=== PATIENT | female | born 1990 | race Caucasian/White ===

== ENCOUNTER 2018-03-11 17:07 | Inpatient (IN) | payer OTHER ==
[2018-03-11] MEDS: Lactated Ringers 1,000 ML IV SCH ×2 (18:20→19:20)
[2018-03-11] MEDS ORDERED: Lactated Ringers 500 ML IV ONE (18:33)
[2018-03-11] MEDS ORDERED: Lidocaine 1% 30 ML SDV INJECT PRN (18:33)
[2018-03-11] MEDS ORDERED: Tranexamic Acid 1,000 MG in Sodium Chloride 0.9% 100 ML IV PRN (18:33)
[2018-03-11] MEDS ORDERED: Methylergonovine 0.2 MG/1 ML Amp IM PRN (18:33)
[2018-03-11] MEDS ORDERED: Acetaminophen 325 MG Tab PO PRN (18:33)
[2018-03-11] MEDS ORDERED: Misoprostol 400 MCG (4 X 100 MCG TAB) RECTAL PRN (18:33)
[2018-03-11] MEDS ORDERED: Carboprost Tromethamine 250 MCG/1 ML Amp IM PRN (18:33)
[2018-03-11] MEDS ORDERED: Ondansetron 4 MG/2 ML SDV IV PRN (18:33)
[2018-03-11] MEDS ORDERED: Sodium Chloride 0.9% 10 ML Syringe FLUSH PRN (18:33)
--- NOTE | 2018-03-11 18:47 | PCM.LDHP ---
<Jeny José - Last Filed: 03/11/18 18:41> L&D History of Present Illness - General Date of Service: 03/11/18 Admit Problem/Dx: Patient Status Order with Admit Dx/Problem 03/11/18 18:34 Patient Status [ADT] Routine Admission Diagnosis/Problem Admission Diagnosis/Problem Normal labor 03/11/18 18:42 Source of Information: Patient History Limitations: Reports: No Limitations - History of Present Illness Introduction:: Patient is a at 37w3d here with rupture of membranes of clear/pink fluid. This occurred at 4:45 pm and she started having strong contractions after that occurring every 3-4 minutes. They are strong. Baby is moving well. No complications of . No other PMH. No vaginal bleeding. No fevers, chills, chest pain, shortness of breath, headaches, vision changes, leg swelling. - Related Data Allergies/Adverse Reactions: Allergies Allergy/AdvReac Type Severity Reaction Status Date / Time sulfamethoxazole Allergy Cannot Verified 03/11/18 18:47 [From Bactrim] Remember trimethoprim [From Bactrim] Allergy Cannot Verified 03/11/18 18:47 Remember Past Medical History PATIENT SCHEDULING COORDINATOR History: Reports: : 1 Para: 0 LMP (Approximate): > 3 Months (37w3d ) Social & Family History - Tobacco Use Smoking Status *Q: Never Smoker - Sexual History Sexual History: Reports: Sexually Active, Single Partner H&P Review of Systems - Review of Systems: Review Of Systems: See Below General: Reports: No Symptoms HEENT: Reports: No Symptoms Pulmonary: Reports: No Symptoms Cardiovascular: Reports: No Symptoms Gastrointestinal: Reports: No Symptoms Genitourinary: Reports: No Symptoms Musculoskeletal: Reports: No Symptoms Skin: Reports: No Symptoms Psychiatric: Reports: No Symptoms Neurological: Reports: No Symptoms Hematologic/Lymphatic: Reports: No Symptoms Immunologic: Reports: No Symptoms L&D Exam - Exam Exam: See Below - Vital Signs Vital Signs: Last BP normal - OB Specific Contraction Intensity: Moderate Movement: Active Heart Tones: Present Heart Tones per Min: 145 (accelerations present, variables present) Heart Rate (FHR) Variability: Moderate (6-25 bmp) - Exam General: Alert, Oriented, Cooperative HEENT: Conjunctiva Clear, EACs Clear, EOMI, Hearing Intact, Mucosa Moist & [place] , Nares Patent, Normal Nasal Septum Neck: Supple, Trachea Midline Lungs: Clear to Auscultation, Normal Respiratory Effort Cardiovascular: Regular Rate, Regular Rhythm, Normal S1, Normal S2 GI/Abdominal Exam: Normal Bowel Sounds, Soft, Non-Tender, Other () Genitourinary: Cervical dilitation (/-1) Back Exam: Normal Inspection Extremities: Normal Inspection, Normal Range of Motion, Non-Tender, No Pedal Edema Skin: Warm, Dry, Intact Neurological: Cranial Nerves Intact, Reflexes Equal Bilateral Psychiatric: Alert, Normal Affect, Normal Mood - Patient Data Lab Results Last 24 hrs: O negative Antibody Negative Rubella immune Hepatitis negative HIV negative gonorrhea/chlamydia negative Negative DM screen GBS negative Problem List Initiated/Reviewed/Updated: Yes Orders Last 24hrs: Active Orders 24 hr Category Date Time Status Patient Status [ADT] Routine ADT 03/11/18 18:34 Ordered Communication Order [RC] ASDIRECTED Care 03/11/18 18:34 Ordered Heart Tones [RC] PER UNIT ROUTINE Care 03/11/18 18:34 Ordered Notify Provider Vital Signs OB [RC] ASDIRECTED Care 03/11/18 18:34 Ordered Notify Provider [RC] PRN Care 03/11/18 18:34 Ordered Pump Management, Intrathecal [RC] ASDIRECTED Care 03/11/18 18:33 Ordered Up ad Aileen [RC] ASDIRECTED Care 03/11/18 18:34 Ordered Vital Signs [RC] PER UNIT ROUTINE Care 03/11/18 18:34 Ordered CBC W/O DIFF,HEMOGRAM [HEME] Routine Lab 03/11/18 18:34 Ordered Acetaminophen [Tylenol] Med 03/11/18 18:33 Ordered 650 mg PO Q4H PRN Carboprost Tromethamine [Hemabate DS] Med 03/11/18 18:33 Ordered 250 mcg IM ASDIRECTED PRN Lactated Ringers @ 125 MLS/HR(1000ml) Med 03/11/18 18:45 Ordered Lactated Ringers [Ringers, Lactated] 1,000 ml IV ASDIRECTED Lactated Ringers [Ringers, Lactated] 500 ml Med 03/11/18 18:33 Ordered IV .BOLUS Lidocaine 1% [Xylocaine-MPF 1%] Med 03/11/18 18:33 Ordered 10 ml INJECT ASDIRECTED PRN Methylergonovine [Methergine] Med 03/11/18 18:33 Ordered 0.2 mg IM ASDIRECTED PRN Misoprostol [Cytotec] Med 03/11/18 18:33 Ordered 800 mcg RECTAL ASDIRECTED PRN Ondansetron [Zofran] Med 03/11/18 18:33 Ordered 4 mg IV Q4H PRN Sodium Chloride 0.9% [Saline Flush] Med 03/11/18 18:33 Ordered 10 ml FLUSH ASDIRECTED PRN Tranexamic Acid [Cyklokapron] 1,000 mg Med 03/11/18 18:33 Ordered Sodium Chloride 0.9% [Normal Saline] 100 ml IV ONETIME Saline Lock Insert [OM.PC] Routine Oth 03/11/18 18:34 Ordered Resuscitation Status Routine Resus Stat 03/11/18 18:33 Ordered Medication Orders Acetaminophen (Tylenol) 650 mg PO Q4H PRN PRN Reason: Pain (Mild 1-3) and fever Carboprost Tromethamine (Hemabate Ds) 250 mcg IM ASDIRECTED PRN PRN Reason: HEMORRHAGE Lactated Ringer's (Ringers, Lactated) 500 mls @ 500 mls/hr IV .BOLUS ONE Stop: 03/11/18 19:32 Lactated Ringer's (Ringers, Lactated) 1,000 mls @ 125 mls/hr IV ASDIRECTED ROSA ISELA Tranexamic Acid 1,000 mg/ (Sodium Chloride) 110 mls @ 660 mls/hr IV ONETIME PRN PRN Reason: Bleeding Lidocaine HCl (Xylocaine-Mpf 1%) 10 ml INJECT ASDIRECTED PRN PRN Reason: Perineal Repair Methylergonovine Maleate (Methergine) 0.2 mg IM ASDIRECTED PRN PRN Reason: Hemorrhage Misoprostol (Cytotec) 800 mcg RECTAL ASDIRECTED PRN PRN Reason: Hemorrhage Ondansetron HCl (Zofran) 4 mg IV Q4H PRN PRN Reason: Nausea/Vomiting Sodium Chloride (Saline Flush) 10 ml FLUSH ASDIRECTED PRN PRN Reason: Keep Vein Open Assessment/Plan Comment:: Normal Labor after SROM at term (37w5d), no complications Admit to L&D Continuous TOCO and EFM Intrathecal when needed Routine intrapartum labs and orders GBS negative rH negative; will check if she need rhogam post Expectant management for Jeny José MD PGYIII <Caridad Monteselajose Anderson - Last Filed: 03/17/18 13:44> L&D History of Present Illness - General Admit Problem/Dx: Patient Status Order with Admit Dx/Problem 03/11/18 18:34 Patient Status [ADT] Routine Admission Diagnosis/Problem Admission Diagnosis/Problem delivery, delivered, current hospitalization L&D Exam - Vital Signs Vital Signs: Last Vital Signs Temp 97.8 F 03/15/18 09:25 Pulse 66 03/15/18 09:25 Resp 14 03/15/18 09:25 BP 126/64 03/15/18 09:25 Pulse Ox 99 03/15/18 09:25 - Patient Data Result Diagrams: 03/13/18 06:30 Assessment/Plan Comment:: Dr. José's note reviewed. Agree with her assessment and plan as written. -valet runner [id number]
[2018-03-11] MEDS ORDERED: Bupivacaine 0.75%/D5W 2 ML Amp ONE (19:00)
[2018-03-11] MEDS ORDERED: EPINEPHrine 1 MG/ML SDV ONE (19:01)
[2018-03-11] MEDS ORDERED: fentaNYL 100 MCG/2 ML SDV ONE (19:01)
--- NOTE | 2018-03-11 19:28 | PCM.SN ---
- Free Text/Narrative Note: Intrathecal. Sitting position. Sterile prep and drape. 1 % lidocaine w bicarb for skinwheal to L2 L3 interspace. introducer, 24 ga pencan x 1. Pos CSF, neg heme, neg parasthesia. epi 1:1000 pf 0.1 ml, pf ns 0.4 ml, 20 mcg pf sufenta, 30 mcg pf fentanyl, 6 mg of 0.75% pf bupivacaine injected after CSF aspiration. Pt to L lateral position procedure time 1900 to 1934
[2018-03-11] MEDS ORDERED: Citric Acid/Sodium Citrate Solution 30 ML Cup PO ONE (23:26)
[2018-03-11] MEDS ORDERED: Citric Acid/Sodium Citrate Solution 30 ML Cup ONE (23:38)
[2018-03-11] MEDS ORDERED: Oxytocin/Normal Saline 60 UNIT/1,000 ML BAG ONE (23:39)
[2018-03-12] MEDS: Lactated Ringers 1,000 ML IV SCH (02:46)
[2018-03-12] MEDS ORDERED: Naloxone 2 MG/2 ML Syringe IVPUSH PRN (02:47)
[2018-03-12] MEDS ORDERED: Acetaminophen/oxyCODONE 325-5 MG Tab PO PRN (02:47)
[2018-03-12] MEDS ORDERED: ePHEDrine 50 MG/ML SDV IVPUSH PRN (02:47)
[2018-03-12] MEDS ORDERED: Benzocaine/Menthol 20%-0.5% Spray 56 GM Canister TOP PRN (02:47)
[2018-03-12] MEDS ORDERED: diphenhydrAMINE 50 MG/ML SDV IVPUSH PRN (02:47)
[2018-03-12] MEDS ORDERED: Hydrocortisone 2.5% Crm 30 GM Tube TOP PRN (02:47)
[2018-03-12] MEDS ORDERED: Ketorolac 30 MG/ML SDV IVPUSH SCH (03:00)
[2018-03-12] MEDS ORDERED: Lactated Ringers 1,000 ML IV SCH (03:00)
[2018-03-12] MEDS: ceFAZolin 2 GM in Premix Bag 1 BAG IV STA ×3 (04:09)
[2018-03-12] MEDS ORDERED: Oxytocin/Normal Saline 30 UNIT/500 ML BAG IV SCH (04:30)
[2018-03-12] MEDS: Ketorolac 30 MG/ML SDV IVPUSH SCH ×3 (07:30→19:59)
--- NOTE | 2018-03-12 07:42 | OR ---
DATE: 03/12/2018 PROCEDURE PERFORMED: Primary low transverse section with complication of hysterotomy incision actually going through the cervical segment rather than the lower aspect of the myometrium. SURGEON: Rubia Wheeler MD. LEAD PROGRAMMER ANALYST: Jeny José, PGY-III . SECOND BASS SINGER: Estrellita Mills MD. THIRD BASS SINGER: Chele Hurtado MD PRE-PROCEDURE DIAGNOSES: 1. A 37 and 4/7 weeks' intrauterine . 2. 1, para 0. 3. Blood type O negative, rubella immune, and group B streptococcus negative. 4. History of asthma. 5. History of Methicillin-resistant Staphylococcus aureus. 6. History of depression. 7. History of irritable bowel syndrome. 8. Arrest of descent in stage 2 of labor. 9. Failed attempt of vacuum-assisted vaginal delivery due to occiput posterior presentation. POSTPROCEDURE DIAGNOSES: 1. A 37 and 4/7 weeks' intrauterine . 2. 1, para 0. 3. Blood type O negative, rubella immune, and group B streptococcus negative. 4. History of asthma. 5. History of Methicillin-resistant Staphylococcus aureus. 6. History of depression. 7. History of irritable bowel syndrome. 8. Arrest of descent in stage 2 of labor. 9. Failed attempt of vacuum-assisted vaginal delivery due to occiput posterior presentation. 10.Delivery of viable female . 11.Surgery complicated by hysterotomy site actually being through the cervical segment rather than the myometrial aspect of the uterus. CONSENT: Discussed with the patient, her and mother, the indications, risks, and alternatives to primary low transverse section. Discussed with her the increased risk of infection and plan for preoperative antibiotics, risk of bleeding to the point of requiring blood transfusion as well as its inherent risk, risk of complications for her and/or the baby that may require transfer to a higher level of care, specifically injury to large blood vessels, nerves, veins, any adjacent or internal structures, including but not limited to bowel, bladder, fallopian tubes, ovaries, uterus itself, and even potential injury to the baby. She verbalized understanding, her questions were answered, and a signed consent was signed and is on the chart. PROCEDURE IN DETAIL: A Garner catheter was placed in the delivery room, after pushing the baby from back up into the pelvis. The patient was then taken to the operating room, and spinal anesthesia obtained. Thereafter, baby's heart tones were verified to be in the 130s prior to the prep. She was laid in the dorsal supine position with leftward tilt and prepped and draped in the usual fashion. A skin incision was made at 0030 hours and carried down to the underlying fascia using a combination of cautery and finger dissection. The fascia was incised in the midline with cautery and extended bilaterally using cautery and finger traction. Superior fascial edge was grasped with Lorrie's, tented up, and rectus muscles dissected off bluntly and with cautery. Inferior fascial edge grasped, tented up, and rectus muscles also dissected off bluntly and with cautery. Rectus muscles were in the midline with blunt finger dissection and peritoneal cavity entered by blunt finger dissection. The Gurwinder O retractor was then placed and hysterotomy site reviewed. Infant's shoulder was palpated just superior to the bladder reflection, and head was well down within the pelvis. Prior to coming to the operating room, the baby's head had been , so it was known that he was very low in the pelvis. With Dr. Mills underneath the drape and pressing cepahalad on the head, hysterotomy incision was made a few centimeters above what appeared to be the bladder reflection and extended bilaterally using traction. Infant's left shoulder present at the incision site. Infant's head was reached, and we managed to bring it up through the incision site and eventually out and baby delivered, and mouth and nose were bulb suctioned. Baby delivered at 0037. Three-vessel umbilical cord was doubly clamped and cut. Baby taken over to the warmer for further evaluation. Attention then returned to the mother, and cord blood sample obtained and placenta delivered by gentle cord traction and concomitant uterine massage, inspected and intact. Hysterotomy site was discovered to be through the cervical tissue and inferior to myometrial tissue. This tissue was more of a black and smooth mucous membrane tissue consistent with being in the cervical segment. The uterine cavity was cleared of all clots and debris using a dry lap sponge. Mendoza clamps were used around the site to identify the edges. We then had a nurse go underneath the drape for a vaginal exam in order to verify that we were properly identifying the anatomy and planing proper closure. The edges were also marked with mosquito hemostats in order to make sure that the landmarks were well identified. At this time, the Garner catheter was showing some hematuria, so the bladder was insufflated with 120 mL of sterile formula, and there were no signs of any leaks or injury to the bladder. Dr. Hurtado had arrived after this to help us verify appropriate landmarks. After verifying that we all agreed to the appropriate closure of the tissue, a torn fragment of the posterior uterine wall was tacked back into place. The incision site was then closed with a running stitch of 0 Vicryl in a locked fashion, and there were noted to be some bleeders on the maternal right-hand side, which were controlled with [id number] and simple suture. A second imbricating layer was then placed through the cervical segment with 0 Vicryl, and hemostasis at this time confirmed. The area was then irrigated and cleared of all clots and debris. The Gurwinder retractor removed, and the pericolic gutters were cleared of all clots and debris, hysterotomy site reinspected, and remained hemostatic, confirmed that there were still no signs of any bladder injury. The peritoneal layer was then closed with the extra stitch of 0 Vicryl that was available in a simple running fashion. The fascia was then closed with a running stitch of 0 looped PDS verifying that we had appropriately identified and reapproximated the fascial edges. The subcutaneous layer was irrigated, cleared of any clots and debris, and small bleeding areas were controlled with cautery. The skin was then closed with a running stitch of 4-0 Monocryl on a Brian needle with excellent skin approximation. This was then reinforced with Mastisol and Steri-Strips. FINDINGS: 1. Viable female infant. scores 9 and 9. Weight 2945 g, 6 pounds 8 ounces. 2. Hysterotomy actually made through the cervical segment rather than the lower myometrial segment and appropriately closed. Reinspection of the hysterotomy site, there was a distinct drop-off from the myometrial tissue to the cervical tissue almost in a shelf-like fashion, and the incision was approximately 1 fingerbreadth below that drop-off. COMPLICATIONS: Cervical segment incision location. ESTIMATED BLOOD LOSS: 400 mL. URINE OUTPUT: 75 mL, clearing as far as the hematuria was concerned. INTRAVENOUS FLUIDS: 2500 mL of crystalloids and 400 mL of Pitocin. The patient will go to the PACU for recovery and then back down to the Labor and Delivery Unit. I will be discussing future and delivery planning with EXECUTIVE DIRECTOR OF MARKETING, who will be covering over the weekend until she is discharged. The patient and her have been informed of the complications and the course of surgery and the expected healing, and her questions were answered. [facility] [place] /[id number] MTDD
--- NOTE | 2018-03-12 08:30 | DEL ---
DATE: 03/11/2018 PRE-PROCEDURE DIAGNOSES: 1. A 37 and 3/7 weeks' intrauterine by last menstrual period. 2. 1, para 0. 3. Blood type O negative. Rubella immune. Group B streptococcus negative. 4. History of depression, irritable bowel syndrome, and asthma. 5. Maternal exhaustion in stage 2 labor with arrest of descent with pushes. POST-PROCEDURE DIAGNOSES: 1. A 37 and 3/7 weeks' intrauterine by last menstrual period. 2. 1, para 0. 3. Blood type O negative. Rubella immune. Group B streptococcus negative. 4. History of depression, irritable bowel syndrome, and asthma. 5. Maternal exhaustion in stage 2 labor with arrest of descent with pushes. 6. Failed vacuum attempt at vaginal delivery and had significant perineal and vaginal area swelling. BRIEF HISTORY: A 27-year-old with the above-listed diagnoses, who presented to the hospital with spontaneous onset of labor and had an intrathecal at approximately 5 cm dilated and quickly progressed on to 9 cm dilated, and after having some laboring down, she was ready to start pushing and feeling pressure. Pushing attempts resulted in little to no descent of the head, and the baby was found to be occiput posterior and pushing efforts continued when she started to feel more pain and started having more difficulties controlling her pain and quality of pushes. Decision was made to proceed with vacuum-assisted vaginal delivery to try and expedite delivery for maternal benefit. Prior to procedure, discussed with her increased risk of shoulder dystocia as a complication requiring urgent or even emergency section, increased risk of vaginal tears and lacerations, increased risk of injury to the baby including scalp tears, lacerations, bleeding below the scalp or even down into the area below the skull, potential complications for her or the baby that would result in unforeseen circumstances, and she agreed to proceed and details are as below. DETAILS: With the patient in dorsal lithotomy position, station at +1. Operating room crew had been previously notified, and they were on standby in case we needed to proceed to emergency . The patient's bladder had been emptied just prior to application of the vacuum and did not return any urine output as she had voided shortly before that. She has been appropriately consented at exit plan in place. Baby's position was confirmed as OP. An OmniCup vacuum was applied with pressure held in the green zone during pulls, in the yellow zone between contractions, and monitoring of the manometry so as not to exceed appropriate pressure. Dr. José, resident on-call with me, made several attempts at vaginal delivery with the vacuum, and ultimately, we were not noting much progress. After approximately 15 to [address] José's attempts, I took over and placed a kiwi vacuum instead, but there was loss of suction, so I returned to the OmniCup. With continued efforts, we had reached a grand total of 3 pop offs and 30 minutes of attempted vacuum delivery. Baby was brought out to the position, but mother was not able to get him deliver the remainder of the way without continued vacuum assistance, and decision was made to proceed with primary low transverse section. Appropriate verbal and written consent was obtained for that procedure, and the patient was prepped for surgery and planned on taking there as soon as possible. head was easily pushed back into vagina. While I was in the surgical area helping make sure things were ready to bring the patient down, Dr. Mills had arrived and assessed the patient. She noticed the head to be , and she made one final attempt at vacuum-assisted vaginal delivery. However, this was also unsuccessful, and we proceeded to C- section. Please see that operative report for full details. COMPLICATIONS: Failed vacuum attempt after 30 minutes of pulls in the green zone with appropriate strength of pulls and adequate contractions. Pitocin was up at 6 in order to help with the strength of contractions for the last 10 minutes or so of the attempt. There was a very slow and gradual process for a vacuum delivery unlike the rapid descent that would normally be expected. The patient had also reached her level of mental and physical exhaustion and could not proceed any further. No technical complications, and mother and baby were in good condition when they were taken to the operating room. [facility] /[id number] DAINA
--- NOTE | 2018-03-12 08:59 | PCM.SN ---
<Jeny José A - Last Filed: 03/12/18 08:54> - Free Text/Narrative Note: Sarah is POD 0 from primary after failed vacuum attempt with an OP baby. Sarah is doing well this morning. She has some tenderness but it is well controlled. She has not been out of bed. She is breast feeding. Bleeding is normal in amount. She is tolerating a diet. Objective: Alert, cooperative, oriented Lungs CTAB bilaterally Heart RRR Abdomen soft, nontender with fundus 2 cm below the umbilicus and firm Extremities without edema Assessment: POD 0 pLCTS after failed vacuum s/p low cut surgery involving cervix : Continue routine post-cesearean cares Rhogam for rH negative status with rH + baby Will discuss case with Dr. Ordaz about future recommendations for repeat sections Ambulate today Remove daily when able Saline lock IV with adequate oral intake No signs of anemia <Rubia Montes C - Last Filed: 03/17/18 14:03> - Free Text/Narrative Note: Dr. José's note reviewed. Agree with her assessment and plan as written. -felling machine operator [id number]
[2018-03-12] MEDS: Prenatal Multivitamin with Calcium/Folic Acid/Iron Tab PO SCH (09:05)
[2018-03-12] MEDS: Docusate Sodium 100 MG Cap PO PRN ×2 (09:05→19:58)
[2018-03-12] MEDS: ceFAZolin 1 GM Vial IVPUSH SCH ×3 (09:05→23:49)
[2018-03-12] MEDS: Ferrous Sulfate 325 MG Tab PO SCH (09:05)
[2018-03-12] MEDS: Simethicone 80 MG Tab.Chew PO SCH ×5 (09:06→23:49)
[2018-03-12] MEDS ORDERED: Oxytocin/Normal Saline 30 UNIT/500 ML BAG IV ONE ×2 (15:57→15:58)
[2018-03-12] MEDS ORDERED: fentaNYL 100 MCG/2 ML SDV ITHECAL ONE (16:36)
[2018-03-12] MEDS ORDERED: Bupivacaine 0.75%/D5W 2 ML Amp ONE (16:36)
[2018-03-12] MEDS ORDERED: Sodium Chloride 0.9% 10 ML SDV IV ONE (16:36)
[2018-03-12] MEDS ORDERED: EPINEPHrine 1 MG/ML SDV IV ONE (16:36)
[2018-03-12] MEDS ORDERED: Promethazine 25 MG/ML SDV IV ONE (16:39)
[2018-03-12] MEDS ORDERED: Bupivacaine 0.75%/D5W 2 ML Amp INJECT ONE (16:39)
[2018-03-12] MEDS ORDERED: Ondansetron 4 MG/2 ML SDV IV ONE (16:39)
[2018-03-12] MEDS ORDERED: ePHEDrine 50 MG/ML SDV IV ONE (16:39)
[2018-03-12] MEDS ORDERED: Ketorolac 30 MG/ML SDV IVPUSH ONE (16:39)
[2018-03-12] MEDS ORDERED: Dexamethasone 4 MG/ML SDV IV ONE (16:39)
[2018-03-12] MEDS ORDERED: Ibuprofen 800 MG Tab PO PRN (23:00)
[2018-03-13] MEDS: Ibuprofen 800 MG Tab PO PRN ×3 (03:38→22:47)
[2018-03-13] MEDS: Acetaminophen/oxyCODONE 325-5 MG Tab PO PRN ×4 (03:39→21:04)
--- NOTE | 2018-03-13 09:17 | PCM.PNPP ---
<JoséJeny - Last Filed: 03/13/18 09:12> - General Info Date of Service: 03/13/18 Admission Dx/Problem (Free Text): Patient Status Order with Admit Dx/Problem 03/11/18 18:34 Patient Status [ADT] Routine Admission Diagnosis/Problem Admission Diagnosis/Problem Normal labor 03/11/18 18:42 Subjective Update: Patient is POD1 from primary LTCS for failed vacuum vaginal delivery. She is doing well. She has been out of bed, daily has been removed. Her pain is well controlled with narcotic pain medicine. She is breast feeding. Lochia normal in amount. She has not had a bowel movement. Vaginal swelling improving. She is tolerating a general diet. No fevers, chills, leg swelling mild. Functional Status: Reports: Pain Controlled, Tolerating Diet, Ambulating, Urinating - General Info Date of Service: 03/13/18 - Patient Data Vital Signs - Most Recent: Last Vital Signs Temp 37.7 C 03/13/18 04:00 Pulse 66 03/13/18 04:00 Resp 18 03/13/18 04:00 BP 111/56 L 03/13/18 04:00 Pulse Ox 97 03/13/18 04:00 Weight - Most Recent: 101.605 kg I&O - Last 24 Hours: Intake & Output 03/12/18 03/13/18 03/13/18 22:59 06:59 14:59 Intake Total 500 Output Total 4676 750 Balance -4175 -750 Lab Results - Last 24 Hours: Laboratory Results - last 24 hr 03/11/18 03/13/18 Range/Units 18:26 06:30 WBC 13.0 H (5.0-10.0) 10^3/uL RBC 3.55 L (4.2-5.4) 10^6/uL Hgb 10.6 L D (12.0-16.0) g/dL Hct 31.8 L (37.0-47.0) % MCV 89.6 (80-100) fL MCH 29.9 (27.0-34.0) pg MCHC 33.3 (33.0-35.0) g/dL Plt Count 272 (150-450) 10^3/uL Antibody Identification Anti-D Med Orders - Current: Current Medications Acetaminophen (Tylenol) 650 mg PO Q4H PRN PRN Reason: Pain (Mild 1-3) and fever Benzocaine/Menthol (Dermoplast Pain Relief [place]) 0 gm TOP Q4H PRN PRN Reason: Hemorrhoids Last Admin: 03/12/18 04:33 Dose: 1 spray Carboprost Tromethamine (Hemabate Ds) 250 mcg IM ASDIRECTED PRN PRN Reason: HEMORRHAGE Diphenhydramine HCl (Benadryl) 25 mg IVPUSH Q6H PRN PRN Reason: Itching or Nausea Docusate Sodium (Colace) 100 mg PO Q12H PRN PRN Reason: Constipation Last Admin: 03/12/18 19:58 Dose: 100 mg Ephedrine Sulfate (Ephedrine Sulfate) 5 mg IVPUSH SEECOMMENT PRN PRN Reason: Other Ferrous Sulfate (Ferrous Sulfate) 325 mg PO BRK [facility] ISE[facility] Last Admin: 03/12/18 09:05 Dose: 325 mg Hydrocortisone (Hydrocortisone 2.5% Crm) 0 gm TOP Q4H PRN PRN Reason: Hemorrhoids Tranexamic Acid 1,000 mg/ (Sodium Chloride) 110 mls @ 660 mls/hr IV ONETIME PRN PRN Reason: Bleeding Lactated Ringer's (Ringers, Lactated) 1,000 mls @ 125 mls/hr IV ASDIRECTED [facility] ISELA Oxytocin/Sodium Chloride (Pitocin In Ns 30 Unit/500 Ml) 30 unit in 500 mls @ 125 mls/hr IV TITRATE [facility] ISELA; Protocol Last Titration: 03/12/18 04:35 Dose: 0 munits/min, 0 mls/hr Ibuprofen (Motrin) 800 mg PO Q8H PRN PRN Reason: mild pain or fever Last Admin: 03/13/18 03:38 Dose: 800 mg Methylergonovine Maleate (Methergine) 0.2 mg IM ASDIRECTED PRN PRN Reason: Hemorrhage Misoprostol (Cytotec) 800 mcg RECTAL ASDIRECTED PRN PRN Reason: Hemorrhage Naloxone HCl (Narcan) 0.1 mg IVPUSH SEECOMMENT PRN PRN Reason: Respiratory Depression Ondansetron HCl (Zofran) 4 mg IV Q4H PRN PRN Reason: Nausea/Vomiting Oxycodone/Acetaminophen (Percocet 325-5 Mg) 1 tab PO Q4H PRN PRN Reason: Pain (moderate 4-6) Oxycodone/Acetaminophen (Percocet 325-5 Mg) 2 tab PO Q4H PRN PRN Reason: Pain (moderate 4-6) Last Admin: 03/13/18 03:39 Dose: 2 tab Prenat Multivit/[place]/Iron/Folic Ac ( Plus Iron) 1 each PO DAILY [facility] Last Admin: 03/12/18 09:05 Dose: 1 each Simethicone (Simethicone) 160 mg PO QID [facility] Last Admin: 03/12/18 23:49 Dose: Not Given Sodium Chloride (Saline Flush) 10 ml FLUSH ASDIRECTED PRN PRN Reason: Keep Vein Open Last Admin: 03/12/18 20:00 Dose: 10 ml Discontinued Medications Bupivacaine HCl/Dextrose (Marcaine 0.75% Spinal) Confirm Administered Dose 2 ml .ROUTE .STK-MED ONE Stop: 03/11/18 19:01 Last Admin: 03/11/18 19:13 Dose: Not Given Bupivacaine HCl/Dextrose (Marcaine 0.75% Spinal) 0.8 ml .XX .STK-MED ONE Stop: 03/12/18 16:37 Bupivacaine HCl/Dextrose (Marcaine 0.75% Spinal) 2 ml INJECT .STK-MED ONE Stop: 03/12/18 16:40 Cefazolin Sodium (Ancef) 1 gm IVPUSH Q8H [facility] Stop: 03/13/18 00:31 Last Admin: 03/12/18 23:49 Dose: 1 gm Citric Acid/Sodium Citrate (Bicitra Solution) 30 ml PO ONETIME ONE Stop: 03/11/18 23:27 Last Admin: 03/11/18 23:40 Dose: 30 ml Citric Acid/Sodium Citrate (Bicitra Solution) Confirm Administered Dose 30 ml .ROUTE .STK-MED ONE Stop: 03/11/18 23:39 Last Admin: 03/12/18 02:18 Dose: Not Given Dexamethasone (Dexamethasone) 8 mg IV .STK-MED ONE Stop: 03/12/18 16:40 Ephedrine Sulfate (Ephedrine Sulfate) 10 mg IV .STK-MED ONE Stop: 03/12/18 16:40 Epinephrine HCl (Adrenalin) Confirm Administered Dose 1 mg .ROUTE .STK-MED ONE Stop: 03/11/18 19:02 Last Admin: 03/11/18 19:13 Dose: Not Given Epinephrine HCl (Adrenalin) 0.1 mg IV .STK-MED ONE Stop: 03/12/18 16:37 Fentanyl (Sublimaze) Confirm Administered Dose 100 mcg .ROUTE .STK-MED ONE Stop: 03/11/18 19:02 Last Admin: 03/11/18 19:13 Dose: Not Given Fentanyl (Sublimaze) 30 mcg ITHECAL .STK-MED ONE Stop: 03/12/18 16:37 Lactated Ringer's (Ringers, Lactated) 500 mls @ 500 mls/hr IV .BOLUS ONE Stop: 03/11/18 19:32 Last Admin: 03/12/18 03:18 Dose: Not Given Lactated Ringer's (Ringers, Lactated) 1,000 mls @ 125 mls/hr IV ASDIRECTED [facility] Last Admin: 03/12/18 02:46 Dose: 125 mls/hr Cefazolin Sodium/Dextrose 2 gm (/ Premix) 50 mls @ 100 mls/hr IV ONETIME [facility] Stop: 03/11/18 23:55 Last Admin: 03/12/18 04:09 Dose: Not Given Oxytocin/Sodium Chloride (Pitocin In Ns 30 Unit/500 Ml) Confirm Administered Dose 60 unit in 1,000 mls @ as directed .ROUTE .STK-MED ONE Stop: 03/11/18 23:40 Oxytocin/Sodium Chloride (Pitocin In Ns 30 Unit/500 Ml) 30 unit in 500 mls @ as directed IV .STK-MED ONE Stop: 03/12/18 15:58 Oxytocin/Sodium Chloride (Pitocin In Ns 30 Unit/500 Ml) 30 unit in 500 mls @ as directed IV .STK-MED ONE Stop: 03/12/18 15:59 Ibuprofen (Motrin) 800 mg PO Q8H PRN PRN Reason: mild pain or fever Ketorolac Tromethamine (Toradol) 15 mg IVPUSH Q6H [facility] Stop: 03/12/18 15:01 Last Admin: 03/12/18 04:08 Dose: Not Given Ketorolac Tromethamine (Toradol) 15 mg IVPUSH Q6H [facility] Stop: 03/12/18 19:31 Last Admin: 03/12/18 19:59 Dose: 15 mg Ketorolac Tromethamine (Toradol) 30 mg IVPUSH .STK-MED ONE Stop: 03/12/18 16:40 Lidocaine HCl (Xylocaine-Mpf 1%) 10 ml INJECT ASDIRECTED PRN PRN Reason: Perineal Repair Lidocaine HCl (Xylocaine-Mpf 1%) 1 ml .XX .STK-MED ONE Stop: 03/12/18 16:37 Lidocaine HCl (Xylocaine-Mpf 1%) 5 ml INJECT .STK-MED ONE Stop: 03/12/18 16:40 Ondansetron HCl (Zofran) 4 mg IV .STK-MED ONE Stop: 03/12/18 16:40 Promethazine HCl (Phenergan) 12.5 mg IV .STK-MED ONE Stop: 03/12/18 16:40 Sodium Bicarbonate (Sodium Bicarbonate 4.2%) Confirm Administered Dose 5 meq .ROUTE .STK-MED ONE Stop: 03/11/18 19:03 Last Admin: 03/11/18 19:17 Dose: Not Given Sodium Bicarbonate (Sodium Bicarbonate 4.2%) 0.5 meq .XX .STK-MED ONE Stop: 03/12/18 16:37 Sodium Bicarbonate (Sodium Bicarbonate 4.2%) 0.5 meq IV .STK-MED ONE Stop: 03/12/18 16:40 Sodium Chloride (Normal Saline) 0.4 ml IV .STK-MED ONE Stop: 03/12/18 16:37 Sufentanil Citrate (Sufenta) Confirm Administered Dose 50 mcg .ROUTE .STK-MED ONE Stop: 03/11/18 19:02 Last Admin: 03/11/18 19:17 Dose: Not Given Sufentanil Citrate (Sufenta) 20 mcg ITHECAL .STK-MED ONE Stop: 03/12/18 16:37 - Interaction Infant Disposition, : in Room with Family Interaction: Holding Feeding: Breastfed ; Nursed Well Support Person: - Recovery Exam Fundal Tone: Firm Fundal Level: 1 Fingerbreadths Below Umbilicus Fundal Placement: Midline Lochia Amount: Scant, Small Lochia Color: Rubra/Red Perineum Description: Edematous Episiotomy/Laceration: None Bladder Status: Indwelling Catheter in Place Urinary Elimination: Indwelling Catheter - Exam General: Alert, Oriented, Cooperative, No Acute Distress HEENT: Pupils Equal, Pupils Reactive, EOMI, Mucous Membr. Moist/[place] Lungs: Clear to Auscultation, Normal Respiratory Effort Cardiovascular: Regular Rate, Regular Rhythm GI/Abdominal Exam: Normal Bowel Sounds, Soft, Other (Incision from c/d /i with dressing. Appropriately tender) Extremities: Normal Inspection, Non-Tender, Pedal Edema (Tradce) Skin: Warm, Dry, Intact Wound/Incisions: Healing Well, Dressing Dry and Intact, No Drainage Neurological: No New Focal Deficit Psy/Mental Status: Alert, Normal Affect, Normal Mood - Problem List Review Problem List Initiated/Reviewed/Updated: Yes - My Orders Last 24 Hours: My Active Orders 03/12/18 08:53 RH IMMUNE GLOBULIN [BBK] Routine 03/12/18 09:30 MATERNAL BLEED, SCREEN [REF] Routine - Assessment Assessment:: Post op day 1 from pLTCS for failed vacuum - Plan Plan:: Routine Post-LTCS repairs Will discuss case with Dr. Ordaz regarding low cut of uterus during delivery Continue ice packs to perineum Continue narcotic, NSAID and tylenol for pain control Saline lock with good oral intake Recommended ambulation Continue general diet Hgb drop appropriate for post-op; no transfusion or iron needed Ancef X 24 now completed Jeny José MD PGYIII <Rubia Montes - Last Filed: 03/17/18 14:05> - Patient Data Vital Signs - Most Recent: Last Vital Signs Temp 97.8 F 03/15/18 09:25 Pulse 66 03/15/18 09:25 Resp 14 03/15/18 09:25 BP 126/64 03/15/18 09:25 Pulse Ox 99 03/15/18 09:25 Med Orders - Current: Current Medications Discontinued Medications Acetaminophen (Tylenol) 650 mg PO Q4H PRN PRN Reason: Pain (Mild 1-3) and fever Benzocaine/Menthol (Dermoplast Pain Relief [place]) 0 gm TOP Q4H PRN PRN Reason: Hemorrhoids Last Admin: 03/12/18 04:33 Dose: 1 spray Bupivacaine HCl/Dextrose (Marcaine 0.75% Spinal) Confirm Administered Dose 2 ml .ROUTE .STK-MED ONE Stop: 03/11/18 19:01 Last Admin: 03/11/18 19:13 Dose: Not Given Bupivacaine HCl/Dextrose (Marcaine 0.75% Spinal) 0.8 ml .XX .STK-MED ONE Stop: 03/12/18 16:37 Bupivacaine HCl/Dextrose (Marcaine 0.75% Spinal) 2 ml INJECT .STK-MED ONE Stop: 03/12/18 16:40 Carboprost Tromethamine (Hemabate Ds) 250 mcg IM ASDIRECTED PRN PRN Reason: HEMORRHAGE Cefazolin Sodium (Ancef) 1 gm IVPUSH Q8H [facility] Stop: 03/13/18 00:31 Last Admin: 03/12/18 23:49 Dose: 1 gm Citric Acid/Sodium Citrate (Bicitra Solution) 30 ml PO ONETIME ONE Stop: 03/11/18 23:27 Last Admin: 03/11/18 23:40 Dose: 30 ml Citric Acid/Sodium Citrate (Bicitra Solution) Confirm Administered Dose 30 ml .ROUTE .ST-MED ONE Stop: 03/11/18 23:39 Last Admin: 03/12/18 02:18 Dose: Not Given Dexamethasone (Dexamethasone) 8 mg IV .STK-MED ONE Stop: 03/12/18 16:40 Diphenhydramine HCl (Benadryl) 25 mg IVPUSH Q6H PRN PRN Reason: Itching or Nausea Docusate Sodium (Colace) 100 mg PO Q12H PRN PRN Reason: Constipation Last Admin: 03/14/18 08:13 Dose: 100 mg Ephedrine Sulfate (Ephedrine Sulfate) 5 mg IVPUSH SEECOMMENT PRN PRN Reason: Other Ephedrine Sulfate (Ephedrine Sulfate) 10 mg IV .STK-MED ONE Stop: 03/12/18 16:40 Epinephrine HCl (Adrenalin) Confirm Administered Dose 1 mg .ROUTE .STK-MED ONE Stop: 03/11/18 19:02 Last Admin: 03/11/18 19:13 Dose: Not Given Epinephrine HCl (Adrenalin) 0.1 mg IV .STK-MED ONE Stop: 03/12/18 16:37 Fentanyl (Sublimaze) Confirm Administered Dose 100 mcg .ROUTE .STK-MED ONE Stop: 03/11/18 19:02 Last Admin: 03/11/18 19:13 Dose: Not Given Fentanyl (Sublimaze) 30 mcg ITHECAL .STK-MED ONE Stop: 03/12/18 16:37 Ferrous Sulfate (Ferrous Sulfate) 325 mg PO BRK [facility] Last Admin: 03/15/18 09:25 Dose: 325 mg Hydrocortisone (Hydrocortisone 2.5% Crm) 0 gm TOP Q4H PRN PRN Reason: Hemorrhoids Lactated Ringer's (Ringers, Lactated) 500 mls @ 500 mls/hr IV .BOLUS ONE Stop: 03/11/18 19:32 Last Admin: 03/12/18 03:18 Dose: Not Given Lactated Ringer's (Ringers, Lactated) 1,000 mls @ 125 mls/hr IV ASDIRECTED [facility] ISE[facility] Last Admin: 03/12/18 02:46 Dose: 125 mls/hr Tranexamic Acid 1,000 mg/ (Sodium Chloride) 110 mls @ 660 mls/hr IV ONETIME PRN PRN Reason: Bleeding Cefazolin Sodium/Dextrose 2 gm (/ Premix) 50 mls @ 100 mls/hr IV ONETIME [facility] Stop: 03/11/18 23:55 Last Admin: 03/12/18 04:09 Dose: Not Given Oxytocin/Sodium Chloride (Pitocin In Ns 30 Unit/500 Ml) Confirm Administered Dose 60 unit in 1,000 mls @ as directed .ROUTE .STK-MED ONE Stop: 03/11/18 23:40 Lactated Ringer's (Ringers, Lactated) 1,000 mls @ 125 mls/hr IV ASDIRECTED [facility] Oxytocin/Sodium Chloride (Pitocin In Ns 30 Unit/500 Ml) 30 unit in 500 mls @ 125 mls/hr IV TITRATE [facility]; Protocol Last Titration: 03/12/18 04:35 Dose: 0 munits/min, 0 mls/hr Oxytocin/Sodium Chloride (Pitocin In Ns 30 Unit/500 Ml) 30 unit in 500 mls @ as directed IV .STK-MED ONE Stop: 03/12/18 15:58 Oxytocin/Sodium Chloride (Pitocin In Ns 30 Unit/500 Ml) 30 unit in 500 mls @ as directed IV .STK-MED ONE Stop: 03/12/18 15:59 Ibuprofen (Motrin) 800 mg PO Q8H PRN PRN Reason: mild pain or fever Ibuprofen (Motrin) 800 mg PO Q8H PRN PRN Reason: mild pain or fever Last Admin: 03/15/18 09:25 Dose: 800 mg Ketorolac Tromethamine (Toradol) 15 mg IVPUSH Q6H [facility] Stop: 03/12/18 15:01 Last Admin: 03/12/18 04:08 Dose: Not Given Ketorolac Tromethamine (Toradol) 15 mg IVPUSH Q6H [facility] Stop: 03/12/18 19:31 Last Admin: 03/12/18 19:59 Dose: 15 mg Ketorolac Tromethamine (Toradol) 30 mg IVPUSH .STK-MED ONE Stop: 03/12/18 16:40 Lidocaine HCl (Xylocaine-Mpf 1%) 10 ml INJECT ASDIRECTED PRN PRN Reason: Perineal Repair Lidocaine HCl (Xylocaine-Mpf 1%) 1 ml .XX .STK-MED ONE Stop: 03/12/18 16:37 Lidocaine HCl (Xylocaine-Mpf 1%) 5 ml INJECT .STK-MED ONE Stop: 03/12/18 16:40 Methylergonovine Maleate (Methergine) 0.2 mg IM ASDIRECTED PRN PRN Reason: Hemorrhage Misoprostol (Cytotec) 800 mcg RECTAL ASDIRECTED PRN PRN Reason: Hemorrhage Naloxone HCl (Narcan) 0.1 mg IVPUSH SEECOMMENT PRN PRN Reason: Respiratory Depression Ondansetron HCl (Zofran) 4 mg IV Q4H PRN PRN Reason: Nausea/Vomiting Ondansetron HCl (Zofran) 4 mg IV .STK-MED ONE Stop: 03/12/18 16:40 Oxycodone/Acetaminophen (Percocet 325-5 Mg) 1 tab PO Q4H PRN PRN Reason: Pain (moderate 4-6) Oxycodone/Acetaminophen (Percocet 325-5 Mg) 2 tab PO Q4H PRN PRN Reason: Pain (moderate 4-6) Last Admin: 03/15/18 13:05 Dose: 2 tab Prenat Multivit/[place]/Iron/Folic Ac ( Plus Iron) 1 each PO DAILY [facility] Last Admin: 03/15/18 09:25 Dose: 1 each Promethazine HCl (Phenergan) 12.5 mg IV .STK-MED ONE Stop: 03/12/18 16:40 Simethicone (Simethicone) 160 mg PO QID [facility] Last Admin: 03/15/18 09:26 Dose: 160 mg Sodium Bicarbonate (Sodium Bicarbonate 4.2%) Confirm Administered Dose 5 meq .ROUTE .STK-MED ONE Stop: 03/11/18 19:03 Last Admin: 03/11/18 19:17 Dose: Not Given Sodium Bicarbonate (Sodium Bicarbonate 4.2%) 0.5 meq .XX .STK-MED ONE Stop: 03/12/18 16:37 Sodium Bicarbonate (Sodium Bicarbonate 4.2%) 0.5 meq IV .STK-MED ONE Stop: 03/12/18 16:40 Sodium Chloride (Saline Flush) 10 ml FLUSH ASDIRECTED PRN PRN Reason: Keep Vein Open Last Admin: 03/12/18 20:00 Dose: 10 ml Sodium Chloride (Normal Saline) 0.4 ml IV .STK-MED ONE Stop: 03/12/18 16:37 Sufentanil Citrate (Sufenta) Confirm Administered Dose 50 mcg .ROUTE .STK-MED ONE Stop: 03/11/18 19:02 Last Admin: 03/11/18 19:17 Dose: Not Given Sufentanil Citrate (Sufenta) 20 mcg ITHECAL .STK-MED ONE Stop: 03/12/18 16:37 - Plan Plan:: Not a candidate, however repeat CS at [address] José's note reviewed. Agree with her assessment and plan as written. -[facility] [id number].
[2018-03-13] MEDS: Prenatal Multivitamin with Calcium/Folic Acid/Iron Tab PO SCH (10:16)
[2018-03-13] MEDS: Docusate Sodium 100 MG Cap PO PRN ×2 (10:16→21:04)
[2018-03-13] MEDS: Simethicone 80 MG Tab.Chew PO SCH ×4 (10:17→21:04)
[2018-03-13] MEDS: Ferrous Sulfate 325 MG Tab PO SCH (10:22)
[2018-03-14] MEDS: Acetaminophen/oxyCODONE 325-5 MG Tab PO PRN ×4 (01:11→20:40)
[2018-03-14] MEDS: Ibuprofen 800 MG Tab PO PRN ×2 (08:11→16:09)
[2018-03-14] MEDS: Ferrous Sulfate 325 MG Tab PO SCH (08:12)
[2018-03-14] MEDS: Simethicone 80 MG Tab.Chew PO SCH ×4 (08:13→20:36)
[2018-03-14] MEDS: Docusate Sodium 100 MG Cap PO PRN (08:13)
[2018-03-14] MEDS: Prenatal Multivitamin with Calcium/Folic Acid/Iron Tab PO SCH (08:13)
--- NOTE | 2018-03-14 08:52 | PCM.PNPP ---
- General Info Date of Service: 03/14/18 Admission Dx/Problem (Free Text): Patient Status Order with Admit Dx/Problem 03/11/18 18:34 Patient Status [ADT] Routine Admission Diagnosis/Problem Admission Diagnosis/Problem Normal labor 03/11/18 18:42 Subjective Update: Patient is POD2 from primary LTCS for failed vacuum vaginal delivery. She is doing well. She has been out of bed, daily has been removed. Her pain is well controlled with narcotic pain medicine. She is breast feeding. Lochia normal in amount. She has not had a bowel movement. Vaginal swelling improving. She is tolerating a general diet. No fevers, chills, leg swelling mild. Functional Status: Reports: Pain Controlled - Review of Systems General: Reports: No Symptoms HEENT: Reports: No Symptoms Pulmonary: Reports: No Symptoms Cardiovascular: Reports: No Symptoms Gastrointestinal: Reports: No Symptoms Genitourinary: Reports: No Symptoms Musculoskeletal: Reports: No Symptoms Skin: Reports: No Symptoms Neurological: Reports: No Symptoms Psychiatric: Reports: No Symptoms - General Info Date of Service: 03/14/18 - Patient Data Vital Signs - Most Recent: Last Vital Signs Temp 36.7 C 03/14/18 08:00 Pulse 71 03/14/18 08:00 Resp 16 03/14/18 08:00 BP 123/73 03/14/18 08:00 Pulse Ox 98 03/14/18 08:00 Weight - Most Recent: 101.605 kg Med Orders - Current: Current Medications Acetaminophen (Tylenol) 650 mg PO Q4H PRN PRN Reason: Pain (Mild 1-3) and fever Benzocaine/Menthol (Dermoplast Pain Relief [place]) 0 gm TOP Q4H PRN PRN Reason: Hemorrhoids Last Admin: 03/12/18 04:33 Dose: 1 spray Carboprost Tromethamine (Hemabate Ds) 250 mcg IM ASDIRECTED PRN PRN Reason: HEMORRHAGE Diphenhydramine HCl (Benadryl) 25 mg IVPUSH Q6H PRN PRN Reason: Itching or Nausea Docusate Sodium (Colace) 100 mg PO Q12H PRN PRN Reason: Constipation Last Admin: 03/14/18 08:13 Dose: 100 mg Ephedrine Sulfate (Ephedrine Sulfate) 5 mg IVPUSH SEECOMMENT PRN PRN Reason: Other Ferrous Sulfate (Ferrous Sulfate) 325 mg PO BRK [facility] Last Admin: 03/14/18 08:12 Dose: 325 mg Hydrocortisone (Hydrocortisone 2.5% Crm) 0 gm TOP Q4H PRN PRN Reason: Hemorrhoids Tranexamic Acid 1,000 mg/ (Sodium Chloride) 110 mls @ 660 mls/hr IV ONETIME PRN PRN Reason: Bleeding Lactated Ringer's (Ringers, Lactated) 1,000 mls @ 125 mls/hr IV ASDIRECTED [facility] Oxytocin/Sodium Chloride (Pitocin In Ns 30 Unit/500 Ml) 30 unit in 500 mls @ 125 mls/hr IV TITRATE [facility]; Protocol Last Titration: 03/12/18 04:35 Dose: 0 munits/min, 0 mls/hr Ibuprofen (Motrin) 800 mg PO Q8H PRN PRN Reason: mild pain or fever Last Admin: 03/14/18 08:11 Dose: 800 mg Methylergonovine Maleate (Methergine) 0.2 mg IM ASDIRECTED PRN PRN Reason: Hemorrhage Misoprostol (Cytotec) 800 mcg RECTAL ASDIRECTED PRN PRN Reason: Hemorrhage Naloxone HCl (Narcan) 0.1 mg IVPUSH SEECOMMENT PRN PRN Reason: Respiratory Depression Ondansetron HCl (Zofran) 4 mg IV Q4H PRN PRN Reason: Nausea/Vomiting Oxycodone/Acetaminophen (Percocet 325-5 Mg) 1 tab PO Q4H PRN PRN Reason: Pain (moderate 4-6) Oxycodone/Acetaminophen (Percocet 325-5 Mg) 2 tab PO Q4H PRN PRN Reason: Pain (moderate 4-6) Last Admin: 03/14/18 05:13 Dose: 2 tab Prenat Multivit/[employer]/Iron/Folic Ac ( Plus Iron) 1 each PO DAILY [facility] Last Admin: 03/14/18 08:13 Dose: 1 each Simethicone (Simethicone) 160 mg PO QID [facility] Last Admin: 03/14/18 08:13 Dose: 160 mg Sodium Chloride (Saline Flush) 10 ml FLUSH ASDIRECTED PRN PRN Reason: Keep Vein Open Last Admin: 03/12/18 20:00 Dose: 10 ml Discontinued Medications Bupivacaine HCl/Dextrose (Marcaine 0.75% Spinal) Confirm Administered Dose 2 ml .ROUTE .STK-MED ONE Stop: 03/11/18 19:01 Last Admin: 03/11/18 19:13 Dose: Not Given Bupivacaine HCl/Dextrose (Marcaine 0.75% Spinal) 0.8 ml .XX .STK-MED ONE Stop: 03/12/18 16:37 Bupivacaine HCl/Dextrose (Marcaine 0.75% Spinal) 2 ml INJECT .STK-MED ONE Stop: 03/12/18 16:40 Cefazolin Sodium (Ancef) 1 gm IVPUSH Q8H [facility] Stop: 03/13/18 00:31 Last Admin: 03/12/18 23:49 Dose: 1 gm Citric Acid/Sodium Citrate (Bicitra Solution) 30 ml PO ONETIME ONE Stop: 03/11/18 23:27 Last Admin: 03/11/18 23:40 Dose: 30 ml Citric Acid/Sodium Citrate (Bicitra Solution) Confirm Administered Dose 30 ml .ROUTE .STK-MED ONE Stop: 03/11/18 23:39 Last Admin: 03/12/18 02:18 Dose: Not Given Dexamethasone (Dexamethasone) 8 mg IV .STK-MED ONE Stop: 03/12/18 16:40 Ephedrine Sulfate (Ephedrine Sulfate) 10 mg IV .STK-MED ONE Stop: 03/12/18 16:40 Epinephrine HCl (Adrenalin) Confirm Administered Dose 1 mg .ROUTE .STK-MED ONE Stop: 03/11/18 19:02 Last Admin: 03/11/18 19:13 Dose: Not Given Epinephrine HCl (Adrenalin) 0.1 mg IV .STK-MED ONE Stop: 03/12/18 16:37 Fentanyl (Sublimaze) Confirm Administered Dose 100 mcg .ROUTE .STK-MED ONE Stop: 03/11/18 19:02 Last Admin: 03/11/18 19:13 Dose: Not Given Fentanyl (Sublimaze) 30 mcg ITHECAL .STK-MED ONE Stop: 03/12/18 16:37 Lactated Ringer's (Ringers, Lactated) 500 mls @ 500 mls/hr IV .BOLUS ONE Stop: 03/11/18 19:32 Last Admin: 03/12/18 03:18 Dose: Not Given Lactated Ringer's (Ringers, Lactated) 1,000 mls @ 125 mls/hr IV ASDIRECTED [facility] Last Admin: 03/12/18 02:46 Dose: 125 mls/hr Cefazolin Sodium/Dextrose 2 gm (/ Premix) 50 mls @ 100 mls/hr IV ONETIME [facility] Stop: 03/11/18 23:55 Last Admin: 03/12/18 04:09 Dose: Not Given Oxytocin/Sodium Chloride (Pitocin In Ns 30 Unit/500 Ml) Confirm Administered Dose 60 unit in 1,000 mls @ as directed .ROUTE .STK-MED ONE Stop: 03/11/18 23:40 Oxytocin/Sodium Chloride (Pitocin In Ns 30 Unit/500 Ml) 30 unit in 500 mls @ as directed IV .STK-MED ONE Stop: 03/12/18 15:58 Oxytocin/Sodium Chloride (Pitocin In Ns 30 Unit/500 Ml) 30 unit in 500 mls @ as directed IV .STK-MED ONE Stop: 03/12/18 15:59 Ibuprofen (Motrin) 800 mg PO Q8H PRN PRN Reason: mild pain or fever Ketorolac Tromethamine (Toradol) 15 mg IVPUSH Q6H [facility] Stop: 03/12/18 15:01 Last Admin: 03/12/18 04:08 Dose: Not Given Ketorolac Tromethamine (Toradol) 15 mg IVPUSH Q6H [facility] Stop: 03/12/18 19:31 Last Admin: 03/12/18 19:59 Dose: 15 mg Ketorolac Tromethamine (Toradol) 30 mg IVPUSH .STK-MED ONE Stop: 03/12/18 16:40 Lidocaine HCl (Xylocaine-Mpf 1%) 10 ml INJECT ASDIRECTED PRN PRN Reason: Perineal Repair Lidocaine HCl (Xylocaine-Mpf 1%) 1 ml .XX .STK-MED ONE Stop: 03/12/18 16:37 Lidocaine HCl (Xylocaine-Mpf 1%) 5 ml INJECT .STK-MED ONE Stop: 03/12/18 16:40 Ondansetron HCl (Zofran) 4 mg IV .STK-MED ONE Stop: 03/12/18 16:40 Promethazine HCl (Phenergan) 12.5 mg IV .STK-MED ONE Stop: 03/12/18 16:40 Sodium Bicarbonate (Sodium Bicarbonate 4.2%) Confirm Administered Dose 5 meq .ROUTE .STK-MED ONE Stop: 03/11/18 19:03 Last Admin: 03/11/18 19:17 Dose: Not Given Sodium Bicarbonate (Sodium Bicarbonate 4.2%) 0.5 meq .XX .STK-MED ONE Stop: 03/12/18 16:37 Sodium Bicarbonate (Sodium Bicarbonate 4.2%) 0.5 meq IV .STK-MED ONE Stop: 03/12/18 16:40 Sodium Chloride (Normal Saline) 0.4 ml IV .STK-MED ONE Stop: 03/12/18 16:37 Sufentanil Citrate (Sufenta) Confirm Administered Dose 50 mcg .ROUTE .STK-MED ONE Stop: 03/11/18 19:02 Last Admin: 03/11/18 19:17 Dose: Not Given Sufentanil Citrate (Sufenta) 20 mcg ITHECAL .STK-MED ONE Stop: 03/12/18 16:37 - Interaction Disposition, : to Nursery Infant Interaction: Holding Feeding: Breastfed Infant; Nursed Well Support Person: - Recovery Exam Fundal Tone: Firm Fundal Level: 1 Fingerbreadths Below Umbilicus Fundal Placement: Midline Lochia Amount: Scant, Small Lochia Color: Rubra/Red Perineum Description: Edematous Episiotomy/Laceration: None Bladder Status: Nonpalpable, Voiding Urinary Elimination: Voided - Exam General: Alert, Oriented HEENT: Pupils Equal Neck: Supple Lungs: Clear to Auscultation, Normal Respiratory Effort Cardiovascular: Regular Rate, Regular Rhythm GI/Abdominal Exam: Normal Bowel Sounds, Soft, Non-Tender, No Organomegaly, No Distention, No Abnormal Bruit, No Mass, Pelvis Stable Extremities: Normal Inspection, Normal Range of Motion, Non-Tender, No Pedal Edema, Normal Capillary Refill Skin: Warm, Dry, Intact Wound/Incisions: Healing Well, Dressing Dry and Intact Neurological: No New Focal Deficit Psy/Mental Status: Alert, Normal Affect, Normal Mood - Problem List Review Problem List Initiated/Reviewed/Updated: Yes - Assessment Assessment:: Post op day 2 from pLTCS for failed vacuum - Plan Plan:: Routine Post-LTCS repairs Will discuss case with Dr. Ordaz regarding low cut of uterus during delivery Continue ice packs to perineum Continue narcotic, NSAID and tylenol for pain control Recommended ambulation Continue general diet Hgb drop appropriate for post-op; no transfusion or iron needed Ancef X 24 now completed Jeny José MD PGYIII
[2018-03-15] MEDS: Ibuprofen 800 MG Tab PO PRN ×2 (01:44→09:25)
[2018-03-15] MEDS: Acetaminophen/oxyCODONE 325-5 MG Tab PO PRN ×3 (01:44→13:05)
--- NOTE | 2018-03-15 05:13 | PCM.DCSUM1 ---
Discharge Summary - Hospital Course Free Text/Narrative:: Patient is POD3 from pLTCS for failed vacuum delivery after she presented to the OB floor for normal labor. No complications this . Her bleeding is light, her pain is well controlled, she is tolerating a general diet and ambulating well. No leg swelling. She is nursing. - Discharge Data Discharge Date: 03/15/18 Discharge Disposition: Home, Self-Care 01 Condition: Good - Patient Summary/Data Operative Procedure(s) Performed: Section Complications: Low uterine segment incision Consults: Consultations 03/12/18 02:47 Consult to Ferryboat Operator [CONS] Routine Labs Pending at D/C: Hemoglobin Recommended Follow-up Testing/Procedures: 2 week incision check - Patient Instructions Diet: Usual Diet as Tolerated Activity: Apply Ice, As Tolerated Driving: May Drive Today Showering/Bathing: May Shower Wound/Incision Care: Keep Operative Site/Wound Site Clean and Dry Notify Provider of: Fever, Increased Pain, Swelling and Redness, Drainage - Discharge Plan - Discharge Summary/Plan Comment Discharge Summary/Plan Comment: Sarah will be discharged home with routine post-ceserean cares described. Continue , stool softner and pain medicine as needed. Return to Dr. Davis clinic in 2 weeks for incision check. Discussed signs/symptoms that would prompt earlier follow up. Jeny José MD PGYIII - Patient Data Vitals - Most Recent: Last Vital Signs Temp 36.1 C 03/15/18 00:00 Pulse 61 03/15/18 00:00 Resp 16 03/15/18 00:00 BP 122/77 03/15/18 00:00 Pulse Ox 98 03/15/18 00:00 Weight - Most Recent: 101.605 kg I&O - Last 24 hours: Intake & Output 03/14/18 03/14/18 03/15/18 14:59 22:59 06:59 Intake Total 747 120 Balance 747 120 Lab Results - Last 24 hrs: Laboratory Results - last 24 hr 03/12/18 Range/Units 09:30 Maternal Bleed Neg Med Orders - Current: Current Medications Acetaminophen (Tylenol) 650 mg PO Q4H PRN PRN Reason: Pain (Mild 1-3) and fever Benzocaine/Menthol (Dermoplast Pain Relief [place]) 0 gm TOP Q4H PRN PRN Reason: Hemorrhoids Last Admin: 05/17/18 04:33 Dose: 1 spray Carboprost Tromethamine (Hemabate Ds) 250 mcg IM ASDIRECTED PRN PRN Reason: HEMORRHAGE Diphenhydramine HCl (Benadryl) 25 mg IVPUSH Q6H PRN PRN Reason: Itching or Nausea Docusate Sodium (Colace) 100 mg PO Q12H PRN PRN Reason: Constipation Last Admin: 03/14/18 08:13 Dose: 100 mg Ephedrine Sulfate (Ephedrine Sulfate) 5 mg IVPUSH SEECOMMENT PRN PRN Reason: Other Ferrous Sulfate (Ferrous Sulfate) 325 mg PO BRK ROSA ISELA Last Admin: 03/14/18 08:12 Dose: 325 mg Hydrocortisone (Hydrocortisone 2.5% Crm) 0 gm TOP Q4H PRN PRN Reason: Hemorrhoids Tranexamic Acid 1,000 mg/ (Sodium Chloride) 110 mls @ 660 mls/hr IV ONETIME PRN PRN Reason: Bleeding Lactated Ringer's (Ringers, Lactated) 1,000 mls @ 125 mls/hr IV ASDIRECTED ROSA ISELA Oxytocin/Sodium Chloride (Pitocin In Ns 30 Unit/500 Ml) 30 unit in 500 mls @ 125 mls/hr IV TITRATE ROSA ISELA; Protocol Last Titration: 03/12/18 04:35 Dose: 0 munits/min, 0 mls/hr Ibuprofen (Motrin) 800 mg PO Q8H PRN PRN Reason: mild pain or fever Last Admin: 03/15/18 01:44 Dose: 800 mg Methylergonovine Maleate (Methergine) 0.2 mg IM ASDIRECTED PRN PRN Reason: Hemorrhage Misoprostol (Cytotec) 800 mcg RECTAL ASDIRECTED PRN PRN Reason: Hemorrhage Naloxone HCl (Narcan) 0.1 mg IVPUSH SEECOMMENT PRN PRN Reason: Respiratory Depression Ondansetron HCl (Zofran) 4 mg IV Q4H PRN PRN Reason: Nausea/Vomiting Oxycodone/Acetaminophen (Percocet 325-5 Mg) 1 tab PO Q4H PRN PRN Reason: Pain (moderate 4-6) Oxycodone/Acetaminophen (Percocet 325-5 Mg) 2 tab PO Q4H PRN PRN Reason: Pain (moderate 4-6) Last Admin: 03/15/18 01:44 Dose: 2 tab Prenat Multivit/Lime Boiler/Iron/Folic Ac ( Plus Iron) 1 each PO DAILY [facility] Last Admin: 03/14/18 08:13 Dose: 1 each Simethicone (Simethicone) 160 mg PO QID [facility] Last Admin: 03/14/18 20:36 Dose: 160 mg Sodium Chloride (Saline Flush) 10 ml FLUSH ASDIRECTED PRN PRN Reason: Keep Vein Open Last Admin: 03/12/18 20:00 Dose: 10 ml Discontinued Medications Bupivacaine HCl/Dextrose (Marcaine 0.75% Spinal) Confirm Administered Dose 2 ml .ROUTE .STK-MED ONE Stop: 03/11/18 19:01 Last Admin: 03/11/18 19:13 Dose: Not Given Bupivacaine HCl/Dextrose (Marcaine 0.75% Spinal) 0.8 ml .XX .STK-MED ONE Stop: 03/12/18 16:37 Bupivacaine HCl/Dextrose (Marcaine 0.75% Spinal) 2 ml INJECT .STK-MED ONE Stop: 03/12/18 16:40 Cefazolin Sodium (Ancef) 1 gm IVPUSH Q8H [facility] Stop: 03/13/18 00:31 Last Admin: 03/12/18 23:49 Dose: 1 gm Citric Acid/Sodium Citrate (Bicitra Solution) 30 ml PO ONETIME ONE Stop: 03/11/18 23:27 Last Admin: 03/11/18 23:40 Dose: 30 ml Citric Acid/Sodium Citrate (Bicitra Solution) Confirm Administered Dose 30 ml .ROUTE .STK-MED ONE Stop: 03/11/18 23:39 Last Admin: 03/12/18 02:18 Dose: Not Given Dexamethasone (Dexamethasone) 8 mg IV .STK-MED ONE Stop: 03/12/18 16:40 Ephedrine Sulfate (Ephedrine Sulfate) 10 mg IV .STK-MED ONE Stop: 03/12/18 16:40 Epinephrine HCl (Adrenalin) Confirm Administered Dose 1 mg .ROUTE .STK-MED ONE Stop: 03/11/18 19:02 Last Admin: 03/11/18 19:13 Dose: Not Given Epinephrine HCl (Adrenalin) 0.1 mg IV .STK-MED ONE Stop: 03/12/18 16:37 Fentanyl (Sublimaze) Confirm Administered Dose 100 mcg .ROUTE .STK-MED ONE Stop: 03/11/18 19:02 Last Admin: 03/11/18 19:13 Dose: Not Given Fentanyl (Sublimaze) 30 mcg ITHECAL .STK-MED ONE Stop: 03/12/18 16:37 Lactated Ringer's (Ringers, Lactated) 500 mls @ 500 mls/hr IV .BOLUS ONE Stop: 03/11/18 19:32 Last Admin: 03/12/18 03:18 Dose: Not Given Lactated Ringer's (Ringers, Lactated) 1,000 mls @ 125 mls/hr IV ASDIRECTED [facility] Last Admin: 03/12/18 02:46 Dose: 125 mls/hr Cefazolin Sodium/Dextrose 2 gm (/ Premix) 50 mls @ 100 mls/hr IV ONETIME STA Stop: 03/11/18 23:55 Last Admin: 03/12/18 04:09 Dose: Not Given Oxytocin/Sodium Chloride (Pitocin In Ns 30 Unit/500 Ml) Confirm Administered Dose 60 unit in 1,000 mls @ as directed .ROUTE .STK-MED ONE Stop: 03/11/18 23:40 Oxytocin/Sodium Chloride (Pitocin In Ns 30 Unit/500 Ml) 30 unit in 500 mls @ as directed IV .STK-MED ONE Stop: 03/12/18 15:58 Oxytocin/Sodium Chloride (Pitocin In Ns 30 Unit/500 Ml) 30 unit in 500 mls @ as directed IV .STK-MED ONE Stop: 03/12/18 15:59 Ibuprofen (Motrin) 800 mg PO Q8H PRN PRN Reason: mild pain or fever Ketorolac Tromethamine (Toradol) 15 mg IVPUSH Q6H [facility] Stop: 03/12/18 15:01 Last Admin: 03/12/18 04:08 Dose: Not Given Ketorolac Tromethamine (Toradol) 15 mg IVPUSH Q6H [facility] Stop: 03/12/18 19:31 Last Admin: 03/12/18 19:59 Dose: 15 mg Ketorolac Tromethamine (Toradol) 30 mg IVPUSH .STK-MED ONE Stop: 03/12/18 16:40 Lidocaine HCl (Xylocaine-Mpf 1%) 10 ml INJECT ASDIRECTED PRN PRN Reason: Perineal Repair Lidocaine HCl (Xylocaine-Mpf 1%) 1 ml .XX .STK-MED ONE Stop: 03/12/18 16:37 Lidocaine HCl (Xylocaine-Mpf 1%) 5 ml INJECT .STK-MED ONE Stop: 03/12/18 16:40 Ondansetron HCl (Zofran) 4 mg IV .STK-MED ONE Stop: 03/12/18 16:40 Promethazine HCl (Phenergan) 12.5 mg IV .STK-MED ONE Stop: 03/12/18 16:40 Sodium Bicarbonate (Sodium Bicarbonate 4.2%) Confirm Administered Dose 5 meq .ROUTE .STK-MED ONE Stop: 03/11/18 19:03 Last Admin: 03/11/18 19:17 Dose: Not Given Sodium Bicarbonate (Sodium Bicarbonate 4.2%) 0.5 meq .XX .STK-MED ONE Stop: 03/12/18 16:37 Sodium Bicarbonate (Sodium Bicarbonate 4.2%) 0.5 meq IV .STK-MED ONE Stop: 03/12/18 16:40 Sodium Chloride (Normal Saline) 0.4 ml IV .STK-MED ONE Stop: 03/12/18 16:37 Sufentanil Citrate (Sufenta) Confirm Administered Dose 50 mcg .ROUTE .STK-MED ONE Stop: 03/11/18 19:02 Last Admin: 03/11/18 19:17 Dose: Not Given Sufentanil Citrate (Sufenta) 20 mcg ITHECAL .STK-MED ONE Stop: 03/12/18 16:37 - Exam General: Reports: Alert, Oriented HEENT: Reports: Pupils Equal, Pupils Reactive, EOMI, Mucous Membr. Moist/[place]: Reports: Supple Lungs: Reports: Clear to Auscultation, Normal Respiratory Effort Cardiovascular: Reports: Regular Rate, Regular Rhythm GI/Abdominal Exam: Normal Bowel Sounds, Soft, Non-Tender, No Organomegaly, No Distention, No Abnormal Bruit, No Mass, Pelvis Stable Back Exam: Reports: Normal Inspection, Full Range of Motion Extremities: Normal Inspection, Normal Range of Motion, Non-Tender, No Pedal Edema, Normal Capillary Refill Skin: Reports: Warm, Dry, Intact Wound/Incisions: Reports: Healing Well, Dressing Dry and Intact, No Drainage Neurological: Reports: No New Focal Deficit Psy/Mental Status: Reports: Alert, Normal Affect, Normal Mood Discharge Operative/Procedures - Procedures Performed Operations: [place] Section
[2018-03-15] MEDS: Ferrous Sulfate 325 MG Tab PO SCH (09:25)
[2018-03-15] MEDS: Prenatal Multivitamin with Calcium/Folic Acid/Iron Tab PO SCH (09:25)
[2018-03-15] MEDS: Simethicone 80 MG Tab.Chew PO SCH (09:26)
--- NOTE | 2018-03-15 15:33 | PN ---
DATE: 03/15/2018 SUBJECTIVE: The patient is now postoperative day #3, status post primary low transverse with a cervical laceration. The patient and baby are both doing well. She is tolerating p.o., voiding, ambulating, good pain control on Percocet. I did see her in conjunction with Dr. José, the resident. PHYSICAL EXAMINATION: Vital Signs: The patient is afebrile. Heart rate 61 to 78, blood pressure 113 to 122 over 55 to 77, respiratory rate 16 to 20, O2 saturation 97-98%. The patient's blood type O negative. She is status post RhoGAM, rubella immune. Again, hemoglobin postoperatively was 10.6 from 12.6 preoperatively, therefore no anemia. Abdomen: Benign. The dressing looks good. Extremities: Have no tenderness, no edema. ASSESSMENT AND PLAN: Postoperative day #3, status post primary low-transverse C- section with an extensive cervical laceration. I will discharge her to home with 30 Percocet. She will follow up with her primary in 2 and 6 weeks. Again, I did explain to her I would be hesitant to consider and therefore primary did feel more comfortable performing repeat at 37 weeks, that would be understandable since this was an extensive hysterotomy and are all in the lower uterine segment. [facility] /[id number]
--- NOTE | 2018-03-16 06:55 | PN ---
DATE: 03/14/2018 The patient is postoperative day #2, status post primary low-transverse C- section. The patient was seen with resident Dr. José. The patient also had a cervical laceration during her delivery. The patient is voiding, ambulating, tolerating p.o., has good pain control. PHYSICAL EXAMINATION: Vital Signs: The patient is afebrile. Heart rate 62 to 72, blood pressure 110 to 123 over 60 to 73, respiratory rate 16 to 20, O2 saturation 98% to 99%. The patient is O negative, status post RhoGAM. She is rubella immune. Abdomen: Benign. Incision is healing well. Hemoglobin is 10.6 from 12.6 preoperatively. Platelets are still good, white count is 13. ASSESSMENT AND PLAN: Postoperative day #2, status post primary low transverse C- section with a significant cervical laceration. Mom and baby are both doing well. I did explain to this patient I am hesitant about her having a and if her primary did decide to do a repeat at 37 weeks, just due to the abnormal location of the incision, I think that would be completely alright. We will continue postoperative care and likely discharge tomorrow. [facility] /[id number]
== END 2018-03-15 13:09 | disposition home or self-care (01) | DRG 765 ==
LOC: DL.OBCHECK 17:07 → DL.OB 18:19 → EEVIPCON 03-12 00:37 → OBSVTOIN 03-12 00:37 → DL.MS 03-13 15:23
PROVIDERS: ADMIT Family Medicine; ATTEND Family Medicine
PROC: 00HU33Z Insertion of Infusion Device into Spinal Canal, Percutaneous Approach (ICD-10-PCS; 2018-03-11)
PROC: 3E0R3BZ Introduction of Anesthetic Agent into Spinal Canal, Percutaneous Approach (ICD-10-PCS; 2018-03-11)
PROC: 10D00Z1 Extraction of Products of Conception, Low, Open Approach (ICD-10-PCS; principal; 2018-03-12)
PROC: 0UQC0ZZ Repair Cervix, Open Approach (ICD-10-PCS; 2018-03-12)
PROC: 6A550ZT Pheresis of Cord Blood Stem Cells, Single (ICD-10-PCS; 2018-03-12)
PROC: 3E0334Z Introduction of Serum, Toxoid and Vaccine into Peripheral Vein, Percutaneous Approach (ICD-10-PCS; 2018-03-13)
DX: O64.0XX0 Obstructed labor due to incomplete rotation of fetal head, not applicable or unspecified (principal); N99.71 Accidental puncture and laceration of a genitourinary system organ or structure during a genitourinary system procedure; O66.5 Attempted application of vacuum extractor and forceps; O75.81 Maternal exhaustion complicating labor and delivery; O62.1 Secondary uterine inertia; O99.344 Other mental disorders complicating childbirth; F32.9 Major depressive disorder, single episode, unspecified; O99.52 Diseases of the respiratory system complicating childbirth; O99.62 Diseases of the digestive system complicating childbirth; Z3A.37 37 weeks gestation of pregnancy; Z37.0 Single live birth; O26.893 Other specified pregnancy related conditions, third trimester; Z67.41 Type O blood, Rh negative; K58.9 Irritable bowel syndrome, unspecified; J45.909 Unspecified asthma, uncomplicated; Z86.14 Personal history of Methicillin resistant Staphylococcus aureus infection; Z88.1 Allergy status to other antibiotic agents; O75.89 Other specified complications of labor and delivery; Y83.8 Other surgical procedures as the cause of abnormal reaction of the patient, or of later complication, without mention of misadventure at the time of the procedure
CPT/HCPCS: 36415; 51701; 85027; 85461; 86850; 86900; 86901; A9270-GY; J0171; J0690; J1100; J1885; J2405; J2550; J2590; J2790; J3010; J7050; J7120

== ENCOUNTER 2019-11-09 06:25 | Day surgery (SDC) | payer BC, OTHER ==
[~2019-11-09 06:25] MED LIST: Dextrose 5%-0.45% NaCl 1,000 ML IV SCH; Midazolam 1 MG/ML 2 ML SDV ONE; Sodium Chloride 0.9% 10 ML Syringe FLUSH PRN; fentaNYL 100 MCG/2 ML SDV ONE
[2019-11-09] MEDS ORDERED: fentaNYL 100 MCG/2 ML SDV IV ONE ×4 (06:26→07:40)
[2019-11-09] MEDS ORDERED: Midazolam 1 MG/ML 2 ML SDV IV ONE ×7 (06:26→07:36)
--- NOTE | 2019-11-09 09:04 | OR ---
DATE: 11/09/2019 PROCEDURES: Total colonoscopy and multiple pinch biopsies. INSTRUMENT USED: PCF-H190DL Olympus video colonoscope. PREMEDICATIONS: Fentanyl 125 mcg intravenous, Versed 4 mg intravenous. The procedure was done under pulse oximetry, BP recording, and environmental monitoring specialist. INDICATION: The patient with chronic diarrhea, unexplained and not responsive to medical measures. Colonoscopic examination is done for detection of any polypoid lesions and removal, biopsies to be obtained for any evidence of microscopic colitis, endoscopic hemostasis therapy if needed. DESCRIPTION OF PROCEDURE: Initial rectal exam was unremarkable. Rigid anoscopy was normal. The colonoscope was passed with ease up to the ileocecal area. Photographs were taken of the cecum identified by appendiceal orifice and thin- lipped ileocecal folds, preventing further advancement of the instrument to visualize terminal ileum. No bleeding was noted from any of the visualized areas at the commencement of the examination. There was quite a bit of liquid material that had to be aspirated, bowel preparation [place] scale 2 in all the areas. No stricture. No vascular ectasia. No large isolated ulcerations seen. No evidence of diffuse inflammatory bowel disease in the form of friability, contact bleeding, or ulcerations. No polyp or tumor mass identified. Probing the proximal sides of folds and flexures using adequate distention and clearing up the stool material, withdrawal of the scope was made. Multiple pinch biopsies were obtained from the normal-appearing mucosa of the mid transverse colon, mid descending colon, and rectosigmoid, and sent for any histopathologic evidence of microscopic colitis. No bleeding was noted from any of the visualized areas at the completion of examination. IMPRESSION: Normal study. The patient tolerated the procedure well. [facility] /[id number]
== END 2019-11-09 09:30 | disposition home or self-care (01) ==
LOC: DL.ENDO 06:25
PROVIDERS: ATTEND Internal Medicine Gastroenterology
DX: K52.9 Noninfective gastroenteritis and colitis, unspecified (principal); J45.909 Unspecified asthma, uncomplicated; Z88.2 Allergy status to sulfonamides; Z90.49 Acquired absence of other specified parts of digestive tract
CPT/HCPCS: 45380; J2250; J3010; J7042

== ENCOUNTER 2022-06-21 14:19 | Inpatient (IN) | payer BC ==
[2022-06-21] MEDS ORDERED: ceFAZolin 2 GM in Premix Bag 1 BAG IV ONE (14:54)
[2022-06-21] MEDS ORDERED: Carboprost Tromethamine 250 MCG/1 ML Amp IM PRN (14:54)
[2022-06-21] MEDS ORDERED: Citric Acid/Sodium Citrate Solution 30 ML Cup PO ONE (14:54)
[2022-06-21] MEDS ORDERED: Sodium Chloride 0.9% 10 ML Syringe FLUSH PRN (14:54)
[2022-06-21] MEDS ORDERED: Oxytocin 10 Units/1 ML SDV IM PRN (14:54)
[2022-06-21] MEDS ORDERED: Methylergonovine 0.2 MG Tab PO PRN (14:54)
[2022-06-21] MEDS ORDERED: Tranexamic Acid 1,000 MG in Sodium Chloride 0.9% 100 ML IV PRN (14:54)
[2022-06-21] MEDS ORDERED: Lactated Ringers 1,000 ML IV SCH ×3 (15:00→21:30)
[2022-06-21] MEDS ORDERED: Oxytocin/Normal Saline 30 UNIT/500 ML BAG IV SCH (15:00)
[2022-06-21] MEDS ORDERED: Lactated Ringers 1,000 ML IV ONE (15:00)
[2022-06-21] MEDS ORDERED: Oxytocin/Normal Saline 30 UNIT/500 ML BAG ONE (15:26)
[2022-06-21] MEDS ORDERED: Sodium Chloride 0.9% 10 ML Syringe FLUSH SCH (21:00)
[2022-06-21] MEDS ORDERED: Misoprostol 400 MCG (4 X 100 MCG TAB) RECTAL PRN (21:24)
[2022-06-21] MEDS ORDERED: ePHEDrine 50 MG/ML SDV IVPUSH PRN (21:24)
[2022-06-21] MEDS ORDERED: diphenhydrAMINE 50 MG/ML SDV IVPUSH PRN (21:24)
[2022-06-21] MEDS ORDERED: Naloxone 2 MG/2 ML Syringe IVPUSH PRN (21:24)
[2022-06-21] MEDS ORDERED: Ondansetron 4 MG/2 ML SDV IVPUSH PRN (21:24)
[2022-06-21] MEDS ORDERED: Acetaminophen/oxyCODONE 325-5 MG Tab PO PRN (21:24)
[2022-06-21] MEDS ORDERED: Methylergonovine 0.2 MG/1 ML Amp IM PRN (21:24)
[2022-06-21] MEDS ORDERED: Acetaminophen 325 MG Tab PO PRN (21:24)
[2022-06-21] MEDS: Ketorolac 30 MG/ML SDV IVPUSH SCH (23:04)
[2022-06-22] MEDS: Ketorolac 30 MG/ML SDV IVPUSH SCH ×2 (04:51→11:33)
[2022-06-22] MEDS: Acetaminophen/oxyCODONE 325-5 MG Tab PO PRN ×4 (08:59→22:32)
[2022-06-22] MEDS: Simethicone 80 MG Tab.Chew PO SCH ×4 (09:00→20:07)
[2022-06-22] MEDS: Docusate Sodium 100 MG Cap PO PRN ×2 (09:00→20:06)
[2022-06-22] MEDS: Prenatal Multivitamin with Calcium/Folic Acid/Iron Tab PO SCH (09:00)
[2022-06-22] MEDS: Ferrous Sulfate 325 MG Tab PO SCH (09:00)
[2022-06-22] MEDS: Sertraline 50 MG Tab PO SCH (09:00)
[2022-06-22] MEDS: Ibuprofen 800 MG Tab PO PRN (20:06)
[2022-06-23] MEDS: Acetaminophen/oxyCODONE 325-5 MG Tab PO PRN ×2 (03:15→07:45)
[2022-06-23] MEDS: Ibuprofen 800 MG Tab PO PRN (05:12)
[2022-06-23] MEDS: Sertraline 50 MG Tab PO SCH ×2 (07:46→09:02)
[2022-06-23] MEDS: Ferrous Sulfate 325 MG Tab PO SCH (07:46)
[2022-06-23] MEDS: Prenatal Multivitamin with Calcium/Folic Acid/Iron Tab PO SCH ×2 (07:46→09:02)
[2022-06-23] MEDS: Simethicone 80 MG Tab.Chew PO SCH ×2 (07:46→09:02)
[2022-06-23] MEDS: Docusate Sodium 100 MG Cap PO PRN (07:59)
[2022-06-23] MEDS ORDERED: Dexamethasone 4 MG/ML SDV IV ONE (08:29)
[2022-06-23] MEDS ORDERED: Ketorolac 30 MG/ML SDV IVPUSH ONE (08:29)
[2022-06-23] MEDS ORDERED: Ondansetron 4 MG/2 ML SDV IV ONE (08:29)
[2022-06-23] MEDS ORDERED: fentaNYL 100 MCG/2 ML SDV ONE (08:29)
[2022-06-23] MEDS ORDERED: Lactated Ringers 1,000 ML IV ONE (08:29)
[2022-06-23] MEDS ORDERED: Morphine PF 1 MG/ML Amp ITHECAL ONE (08:29)
[2022-06-23] MEDS ORDERED: Sodium Chloride 0.9% 10 ML Syringe IV ONE (08:29)
[2022-06-23] MEDS ORDERED: Sodium Chloride 0.9% 1,000 ML IV ONE (08:29)
== END 2022-06-23 08:30 | disposition home or self-care (01) | DRG 540 ==
LOC: DL.OBCHECK 14:19 → DL.OB 15:03 → DL.MS 15:25 → DL.OB 16:14 → OBSVTOIN 16:14
PROVIDERS: ADMIT Family Medicine; ATTEND Family Medicine
PROC: 10D00Z1 Extraction of Products of Conception, Low, Open Approach (ICD-10-PCS; principal; 2022-06-21)
PROC: 3E0234Z Introduction of Serum, Toxoid and Vaccine into Muscle, Percutaneous Approach (ICD-10-PCS; 2022-06-22)
DX: O34.211 Maternal care for low transverse scar from previous cesarean delivery (principal); O99.214 Obesity complicating childbirth; O99.02 Anemia complicating childbirth; D62 Acute posthemorrhagic anemia; O77.0 Labor and delivery complicated by meconium in amniotic fluid; O99.344 Other mental disorders complicating childbirth; F32.A Depression, unspecified; Z20.822 Contact with and (suspected) exposure to COVID-19; Z37.0 Single live birth; O26.893 Other specified pregnancy related conditions, third trimester; Z90.49 Acquired absence of other specified parts of digestive tract; Z3A.37 37 weeks gestation of pregnancy; Z28.82 Immunization not carried out because of caregiver refusal; Z67.41 Type O blood, Rh negative
CPT/HCPCS: 01961; 36415; 51702; 85025; 85027; 85461; 86850; 86870; 86900; 86901; A9270-GY; J0690; J1100; J1885; J2274; J2405; J2590; J2790; J3010; J3490; J7030; J7120; U0002